=== PATIENT | male | born 1945 | race Two or more races ===

== ENCOUNTER 2019-09-18 14:43 | Outpatient (CLI) | payer OTHER ==
[2019-10-03] MEDS ORDERED: TAMS0.4C PO (12:37)
[2019-10-03] MEDS ORDERED: VITAMIN D PO (12:38)
[2019-10-03] MEDS ORDERED: CASODEX50 MG PO (12:39)
[2019-10-03] MEDS ORDERED: TRAMADOL PO (12:39)
== END 2019-09-18 14:48 | disposition home or self-care (01) ==
LOC: LAB 14:43
PROVIDERS: ATTEND Urology
DX: R97.20 Elevated prostate specific antigen [PSA] (principal)

== ENCOUNTER 2019-09-25 07:03 | Outpatient (CLI) | payer OTHER ==
[2019-10-03] MEDS ORDERED: TAMS0.4C PO (12:37)
[2019-10-03] MEDS ORDERED: VITAMIN D PO (12:38)
[2019-10-03] MEDS ORDERED: TRAMADOL PO (12:39)
[2019-10-03] MEDS ORDERED: CASODEX50 MG PO (12:39)
== END 2019-09-25 07:07 | disposition home or self-care (01) ==
LOC: SONOGRAMA 07:03
PROVIDERS: ATTEND Urology
DX: D29.1 Benign neoplasm of prostate (principal); R97.20 Elevated prostate specific antigen [PSA]

== ENCOUNTER 2019-10-07 06:11 | Day surgery (SDC) | payer OTHER ==
[~2019-10-07 06:11] MED LIST: CASODEX50 MG PO; TAMS0.4C PO; TRAMADOL PO; VITAMIN D PO
== END 2019-10-07 15:15 | disposition home or self-care (01) ==
LOC: CIR.AMB 06:11
PROVIDERS: ATTEND Urology
DX: C61 Malignant neoplasm of prostate (principal)